=== PATIENT | female | born 1980 | race Caucasian/White ===

== ENCOUNTER 2023-06-18 08:30 | Emergency (ER) | payer MEDICAID ==
[~2023-06-18] VITALS: Ht 157.5 cm; Wt 109.5 kg
[~2023-06-18 08:30] MED LIST: ALBU8.5H17 IH; ALBU8HFA PO; METH4TAB81 PO
[2023-06-18 09:00] VITALS: BP 139/80; PULSE 105; RESP 18; TEMP 100; O2SAT 100
[2023-06-18] MEDS: ketorolac trometh. 30mg/ml inj. IM ONE (09:24)
[2023-06-18] MEDS: TETanus/Pertussis (Acell)/Diphther VAC/PF (Tdap-Adult) 0.5ml syringe IMVAC ONE (09:25)
== END 2023-06-18 19:23 | disposition home or self-care (01) ==
LOC: ER 08:30
DX: S93.492A Sprain of other ligament of left ankle, initial encounter (principal); J45.909 Unspecified asthma, uncomplicated; Z88.5 Allergy status to narcotic agent; Z79.899 Other long term (current) drug therapy; X58.XXXA Exposure to other specified factors, initial encounter; Y93.89 Activity, other specified; Y92.89 Other specified places as the place of occurrence of the external cause; Y99.8 Other external cause status
CPT/HCPCS: 73610; 90471; 90715; 96372; 99284; J1885; L4360